=== PATIENT | female | born 1980 | race Caucasian/White ===

== ENCOUNTER 2017-09-12 10:49 | Emergency (ER) | payer MEDICARE ==
[~2017-09-12] VITALS: Ht 157.5 cm; Wt 68.2 kg
[2017-09-12 13:06] VITALS: BP 142/88
== END 2017-09-12 13:09 | disposition home or self-care (01) ==
LOC: EMS 10:54
DX: S20.211A Contusion of right front wall of thorax, initial encounter (principal); Y04.0XXA Assault by unarmed brawl or fight, initial encounter; Y93.89 Activity, other specified; Y92.89 Other specified places as the place of occurrence of the external cause; Y99.8 Other external cause status
CPT/HCPCS: 71101; 99284